=== PATIENT | male | born 1950 | race Caucasian/White ===

== ENCOUNTER 2017-08-15 12:50 | Emergency (ER) | payer OTHER ==
[2017-08-15] MEDS ORDERED: IBUPROFEN 800 MG TAB PO ONE (13:11)
[2017-08-15] MEDS ORDERED: OSELTAMIVIR PHOSPHATE 75 MG CAP PO ONE (13:11)
[2017-08-15] MEDS ORDERED: BENZONATATE 100 MG CAP PO ONE (13:12)
[2017-08-15 13:18] VITALS: RESP 18; TEMP 99.7; O2SAT 93
--- NOTE | 2017-08-15 13:22 | EDPHY ---
H & P Time Seen by Provider: 08/15/17 12:56 HPI/ROS: HPI Flu-like symptoms. 66-year-old male by private vehicle with his . They are currently traveling. Patient reports that since yesterday afternoon he has had muscle aches, joint aches, fever, a deep nonproductive cough and nasal congestion. He also sustained a laceration to the right anterior leg. He has had some generalized swelling to this leg and is worried about a blood clot. ROS: Constitutional: As above. No weakness. Eyes: No discharge. No changes in vision. ENT: No sore throat. As above. Respiratory: As above. No shortness of breath. Cardiac: No chest pain, no palpitations. Gastrointestinal: No abdominal pain, no vomiting, no diarrhea. Genitourinary: No hematuria. No dysuria or increased frequency with urination. Musculoskeletal: No back pain. No neck pain. As above. Skin: No rashes. Neurological: No headache. No focal weakness or altered sensation. Past medical history: Hyperlipidemia, skin cancer, hypertension. Social history: Nonsmoker. Here with his . Traveling from out of [facility]. No alcohol. Physical Exam: General Appearance: Alert, no distress. This patient is responding to questions appropriately and in full sentences. This patient appears well- hydrated and well-nourished. Eyes: Pupils equal and round no pallor or injection. No lid edema, erythema or injection. ENT, Mouth: Mucous membranes are moist. The pharyngeal tissues are unremarkable. No edema or swelling. No asymmetry suggestive of abscess. No erythema or exudates. No stridor. No voice changes. Respiratory: There are no retractions, lungs are clear to auscultation with good air movement bilaterally. No tachypnea. Intermittent nonproductive cough. Cardiovascular: Regular rate and rhythm. No murmur. Gastrointestinal: Abdomen is soft and nontender, no masses, bowel sounds normal. No focal tenderness at McBurney's point. No Loyola sign. Neurological: Motor sensory function is grossly intact. Cranial nerves are normal. Gait is normal. Skin: Warm and dry, no rashes. Musculoskeletal: Neck is supple and nontender. Right lower extremity exam: He has a linear deep abrasion which is scabbed over measuring about 8 cm midline anterior right richter. There is no erythema. There is no increased warmth compared to the left lower extremity. He does not have significant tenderness on palpation around this wound. No crepitus appreciated. However, he does have a mild asymmetry swelling of his right lower extremity compared to the left lower extremity. The right lower extremity is otherwise neurovascularly intact. Psychiatric: No agitation. No depression. Database: EKG: Imaging: Right lower extremity ultrasound: Negative for DVT. Results were discussed with staff radiologist Dr. Serge Mcintyre. Chest x-ray PA and lateral; the cardiac mediastinal silhouette is unremarkable. No evidence of infiltrate or pneumothorax. No acute cardiopulmonary disease process noted. Interpreted by me. Procedures: Emergency department course: Vital signs reviewed. Chest x-ray obtained. Patient sent for right lower extremity ultrasound to evaluate for DVT. His presentation to the emergency department is consistent with influenza. He was given Tamiflu, ibuprofen and Tessalon Perle. Right lower extremity exam is not consistent with cellulitis/ infectious process, however given his recent travel and the slight asymmetric swelling DVT considered. 2:30 p.m., patient re-evaluated. Resting comfortably at this time. Results of chest x-ray and ultrasound discussed with him. Plan will be to treat him with Tamiflu, ibuprofen and Tessalon. Differential Diagnosis: The differential diagnosis on this patient includes but is not limited to influenza, viral syndrome, bronchitis, right lower extremity DVT. Right lower extremity cellulitis unlikely. This represents a partial list of diagnoses considered. These considerations are based on history, physical exam, past history, reassessment and diagnostic testing. Smoking Status: Current every day smoker Constitutional: Initial Vital Signs Temperature (C) 37.6 C 08/15/17 12:55 Heart Rate 90 08/15/17 12:55 Respiratory Rate 18 08/15/17 12:55 Blood Pressure 148/73 H 08/15/17 12:55 O2 Sat (%) 93 08/15/17 12:55 O2 Delivery Mode Room Air Allergies/Adverse Reactions: No Known Allergies Allergy (Unverified 08/15/17 13:02) Home Medications: Medication Instructions Recorded Atorvastatin Calcium 08/15/17 Benzonatate [Tessalon Pearles] 100 mg PO TID #12 cap 08/15/17 Gemfibrozil 08/15/17 Lisinopril 08/15/17 Oseltamivir Phosphate [Tamiflu 75 75 mg PO BID #10 cap 08/15/17 mg (RX)] Medical Decision Making - Diagnostics Imaging Results: Imaging Impressions Chest X-Ray 08/15/17 13:12 Impression: No evidence for congestive failure or pneumonia. - Data Points Medications Given: Discontinued Medications Benzonatate (Tessalon Pearles) 200 mg PO EDNOW ONE Stop: 08/15/17 13:13 Last Admin: 08/15/17 13:25 Dose: 200 mg Ibuprofen (Motrin) 800 mg PO EDNOW ONE Stop: 08/15/17 13:12 Last Admin: 08/15/17 13:25 Dose: 800 mg Oseltamivir Phosphate (Tamiflu) 75 mg PO EDNOW ONE Stop: 08/15/17 13:12 Last Admin: 08/15/17 13:25 Dose: 75 mg Departure - Departure Disposition: Home, Routine, Self-Care Clinical Impression: Influenza Condition: Good Instructions: Influenza (ED) Additional Instructions: Read and follow provided instructions. Follow-up with your primary care physician in 2-3 days for re-evaluation. Take medication as prescribed for cough and influenza. Ibuprofen dosin mg every 6 hours with meals for the next 3 days only. Return to the emergency department immediately for worsening symptoms, worsening swelling, redness or discoloration to your right leg, high fever, pain or other serious concerns. Referrals: UNK,UNK [Other] - As per Instructions Prescriptions: Benzonatate [Tessalon Pearles] 100 mg PO TID #12 cap Oseltamivir Phosphate [Tamiflu 75 mg (RX)] 75 mg PO BID #10 cap
[2017-08-15 14:28] VITALS: BP 121/76; PULSE 78
== END 2017-08-15 14:40 | disposition home or self-care (01) ==
LOC: CED 12:50
DX: J11.1 Influenza due to unidentified influenza virus with other respiratory manifestations (principal); I10 Essential (primary) hypertension; F17.200 Nicotine dependence, unspecified, uncomplicated; Z85.828 Personal history of other malignant neoplasm of skin
CPT/HCPCS: 71020-PO; 93970-PO; 93971-PO